=== PATIENT | female | born 1950 | race Caucasian/White ===

== ENCOUNTER 2021-09-15 06:04 | Outpatient (REF) | payer SELFPAY ==
[2021-09-15 06:43] LABS: INTERNATIONAL NORM RATIO 2.6 (0.9-1.1); Prothrombin Time 30.6 SEC (9.9-13.0)
== END 2021-09-15 06:05 | disposition home or self-care (01) ==
LOC: HO.MMNH1L 06:04
PROVIDERS: Visit Provider Family Medicine
DX: S72.92XD Unspecified fracture of left femur, subsequent encounter for closed fracture with routine healing (principal); I10 Essential (primary) hypertension; E78.5 Hyperlipidemia, unspecified
CPT/HCPCS: 36415; 85610

== ENCOUNTER 2021-10-07 06:13 | Outpatient (REF) | payer MEDICARE, SELFPAY | END 2021-10-07 06:14 | disposition home or self-care (01) | LOC: HO.MMNH1L 06:13 | PROVIDERS: Visit Provider Family Medicine | DX: Z13.89 Encounter for screening for other disorder (principal) ==

== ENCOUNTER 2021-10-12 00:29 | Outpatient (REF) | payer MEDICARE, SELFPAY | END 2021-10-12 00:30 | disposition home or self-care (01) | LOC: HO.MMNH1L 00:29 | PROVIDERS: Visit Provider Family Medicine | DX: Z13.89 Encounter for screening for other disorder (principal) ==